=== PATIENT | female | born 1955 | race Caucasian/White ===

== ENCOUNTER → 2023-06-07 08:27 | Outpatient (REF) | payer OTHER, SELFPAY | LOC: HWRAD 08:27 | PROVIDERS: ATTENDING PHYSICIAN Surgery; FAMILY PHYSICIAN Physician Assistant Medical | DX: K57.32 Diverticulitis of large intestine without perforation or abscess without bleeding (principal) | CPT/HCPCS: 74177; Q9967 ==

== ENCOUNTER 2023-07-22 12:03 | Inpatient (IN) | payer OTHER, SELFPAY ==
[2023-07-12 12:36] VITALS: BMI 32.7
[2023-07-22] VITALS (11 sets, daily range): BP systolic 137–182; BP diastolic 60–102; BMI 32.7
[2023-07-22] MEDS: ENTEREG 12 MG PO (11:59)
[2023-07-22] MEDS: TYLENOL 1000 MG PO (11:59)
[2023-07-22] MEDS: NORMOSOL-R 1000 IV (12:04)
--- NOTE | 2023-07-22 13:05 | HP.FOC2 ---
Focused History & Physical
Chief Complaint
HPI:
Chief Complaint: Chronic sigmoid diverticulitis
HPI / Indication for Planned Procedure: Patient is a 68-year-old female who I been following as an outpatient secondary to a known history of intermittent and chronic sigmoid diverticulitis. Secondary to the frequency of her numerous recurrences
she presents today for scheduled sigmoidectomy for definitive management of her sigmoid diverticular disease.
Relevant Past Medical History: Other (Hypertension, GERD, OCD, history of diverticulitis)
Relevant Social History: Negative
Relevant Family History: Negative
Relevant Past Surgical History: Positive for (Right eye surgery)
Review of Systems
Review of Pertinent Systems: All Systems Negative
Medication
See Medication form for detailed medications: Yes
Medication List (including Herbals & OTC):
acetaminophen 325 mg tablet (Tylenol) 650 mg PO Q4H PRN pain 07/15/23
clomipramine 25 mg capsule 25 mg PO DAILY 07/15/23
famotidine 20 mg tablet (Pepcid) 40 mg PO DAILY 07/15/23
ibuprofen 200 mg capsule 200 mg PO Q6H PRN pain 07/15/23
lisinopril 5 mg tablet 5 mg PO DAILY 07/15/23
Medications Reviewed: Yes
Allergies and Reactions
Patient has Allergies: No
Noted Allergies and Reactions:
Allergy/AdvReac Type Severity Reaction Status Date / Time
No Known Allergies Allergy Verified 07/15/23 11:32
Pertinent Physical Exam
All Other Systems: Negative
Head/Neck: Normal
Lungs: Normal
Heart: Normal
Abdomen: Normal
Extremities: Normal
Neurological: Normal
Diagnosis / Assessment
68-year-old female with history of multiply recurrent/chronic sigmoid diverticulitis presenting for scheduled sigmoidectomy
Plan / Procedure
Laparoscopic assisted sigmoidectomy
Anesthesia/Sedation to be done by Anesthesia Provider: Yes
--- NOTE | 2023-07-22 13:07 | W.SUR.PREOP ---
Pre-Operative Surgical Note
-
I have examined this patient prior to the performance of the scheduled procedure.
The patient's condition is unchanged from the time of the current History and
Physical and the patient is able to undergo the scheduled procedure.
--- NOTE | 2023-07-22 18:00 | W.IMMPOSTOP ---
Addendum entered and electronically signed by Alex Peoples MD 07/27/23 16:35:
#[id number]
Original Note:
Surgical Immed Post Op Note
-
Primary Surgeon: Richelle
Assisting Surgeon: Kasie Godoy PA-C
Pre-op Diagnosis: Chronic Sigmoid Diverticulitis
Post-op Diagnosis: Chronic Sigmoid Diverticulitis
Procedure Performed: Laparoscopic mobilization splenic flexure
Laparoscopic low anterior resection
Anesthesia Type: GETA + 0.25% Marcaine
Specimen / Cultures: Sigmoid colon and upper rectum
Estimated Blood Loss: 50mL
Complications: none immediate
Operative Findings: Fibrotic, thickened sigmoid colon folded upon itself and adherent to left pelvic sidewall. Diseased area predominantly in distal sigmoid colon to level of upper rectum with dense inflammatory adhesions but no abscess or acute
component. Sigmoid colon resected. Upper portion of intraperitoneal rectum also resected due to scaring and angulation caused by mesenteric/peritoneal scarring. Rectum circumferentially mobilized for upper resection but point of resection and
anastomosis just at intraperitoneal border of rectum; preserving all of the extraperitoneal rectum. EEA end-end procto-colonic anastomosis. Air leak test negative.
The assistance of Kasie Godoy PA-C was required due to the complexity of the procedure. During the procedure Kasie Godoy PA-C assisted with retraction of tissue, managing the laparoscope, assistance with bowel resection, and closure of the
incision sites. I was present for the entirety of the operative procedure.
patients sister in law updated post op in the waiting area
[2023-07-22] MEDS: DILAUDID 0.5 MG IV ×3 (18:40→20:42)
[2023-07-22] MEDS: NSS 1000 IV (19:09)
[2023-07-22] MEDS: APRESOLINE 5 MG IV (20:34)
--- NOTE | 2023-07-22 21:00 | PTCARENOTE ---
Pt. arriving to [facility] [address] from PACU via bed at 1947. Surgical sites inspected with off-going PACU nurse at bedside. Pt. A&Ox3, drowsy but arousable to verbal stimuli, in NAD, even and unlabored breathing on 2L NC, BP 182/102 manually, house [employer]
contacted for orders - see MAR. Pt. and family member oriented to room and unit policies, bed locked and in lowest position, side rails in place, and call light within reach.
[2023-07-23] MEDS: DILAUDID 0.5 MG IV ×7 (00:01→23:31)
[2023-07-23] MEDS: NSS 1000 IV ×3 (02:38→20:30)
[2023-07-23 03:43] VITALS: BP 118/67
[2023-07-23] MEDS: PEPCID 40 MG PO (03:48)
[2023-07-23] MEDS: TYLENOL 650 MG PO (04:02)
[2023-07-23 05:40] LABS: Hematocrit 37.6 % (37.0-47.0); Hemoglobin 12.2 g/dL (12.0-16.0); Mean Corp Hgb Conc. 32.4 g/dL (33.0-37.0); Mean Corpuscular Hgb 28.6 pg (27.0-31.0); Mean Corpuscular Volume 88.1 fL (81.0-99.0); Mean Platelet Volume 10.5 fL (7.4-10.4); Platelet Count 197 10^3/uL (130-400); Red Blood Cell Count 4.27 10^6/uL (4.20-5.40); Red Cell Dist. Width 13.1 % (11.5-14.5); White Blood Cell Count 7.7 10^3/uL (4.8-10.8)
[2023-07-23 06:15] LABS: Blood Urea Nitrogen 11 mg/dl (7-17); Carbon Dioxide 26 mmol/L (22-30); Chloride 104 mmol/L (98-107); Estimated Creatinine Clearance 102 ml/min; Glucose 106 mg/dl (70-99); Potassium 4.4 mmol/L (3.5-5.1); Sodium 137 mmol/L (135-145); eGFR > 60.00
[2023-07-23 07:16] VITALS: BP 125/55
[2023-07-23] MEDS: ENTEREG 12 MG PO ×2 (08:16→20:27)
[2023-07-23] MEDS: FLUSH (NSS) 1 FLUSH IV (08:16)
[2023-07-23] MEDS: PROTONIX IV 40 MG IV (08:16)
[2023-07-23] MEDS: ZESTRIL 5 MG PO (08:16)
[2023-07-23] MEDS: NSS (PRESERVATIVE FREE) 10 ML IV (08:16)
--- NOTE | 2023-07-23 08:32 | W.PN.GS2 ---
Today's Communication / Plan
-
-- Trial of clears
-- Pain control: Tylenol, Toradol, IV Dilaudid PRN, start Tramadol or Oxycodone if tolerating clears
-- Maintain IVF for today, will decrease rate slightly
-- Lovenox for DVT
-- OOB/ambulate
Assessment / Plan
-
Patient is a 68 yo F POD#1 s/p laparoscopic sigmoidectomy/LAR for diverticulitis
AVSS
Labs unremarkable
No major postoperative concerns
-- Trial of clears
-- Pain control: Tylenol, Toradol, IV Dilaudid PRN, start Tramadol or Oxycodone if tolerating clears
-- Maintain IVF for today, will decrease rate slightly
-- Home BP medications ordered
-- Lovenox for DVT
-- Protonix for GI (home medication)
-- OOB/ambulate
Subjective Data
-
Date of Service: July 23, 2023
Slight abdominal soreness with movement. No major complaints. Denies nausea, vomiting, increased bloating. No flatus or BM. Rizzo in place. Afebrile. Minimal ambulation.
Objective Data
-
Intake and Output
07/22/23 07/23/23 07/24/23
06:59 06:59 06:59
Intake Total 1685 / 1685
Output Total 850 / 850
Balance 835 / 835
Intake:
IV fluids (Total) 1685 / 1685
Normosol 125 / 125
Output:
Urine, Rizzo 850 / 850
Vital Signs
Temp Pulse Resp BP Pulse Ox
98.5 F 83 18 125/55 98
07/23/23 07:16 07/23/23 07:16 07/23/23 07:16 07/23/23 07:16 07/23/23 07:16
Lab Results
07/23/23 04:19
07/23/23 04:19
Calcium 8.0 mg/dl (8.4-10.2) L 07/23/23 04:19
Physical Exam
-
Gen: NAD
Abd: soft, mild abdominal pain, mild distension, non-peritoneal, incisions c/d/i - no erythema, ecchymosis or drainage
--- NOTE | 2023-07-23 11:17 | CM ---
Met with patient in room. Patient works fulltime at [employer]. SHe was independent prior to admit. She lives alone in 2 level home. It is built on a hill. TO enter 7 steps, landing 7 more steps to enter.
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 UP 5 steps, landing, 5 more steps to full bath and bedroom. She has bought a raised toilet seat.
NO other DME. NO history of VNA or SNF.
Plan home no needs.
[2023-07-23 11:23] VITALS: BP 125/56
[2023-07-23 15:44] VITALS: BP 134/60
[2023-07-23] MEDS: LOVENOX 40 MG SC (17:07)
[2023-07-23] MEDS: ANAFRANIL 25 MG PO (21:32)
[2023-07-23 23:40] VITALS: BP 130/67
[2023-07-24] MEDS: DILAUDID 0.5 MG IV ×2 (03:46→06:17)
[2023-07-24] MEDS: NSS 1000 IV (06:10)
[2023-07-24 06:22] LABS: Hematocrit 34.2 % (37.0-47.0); Mean Corp Hgb Conc. 32.2 g/dL (33.0-37.0); Mean Corpuscular Hgb 28.6 pg (27.0-31.0); Mean Corpuscular Volume 89.1 fL (81.0-99.0); Mean Platelet Volume 10.7 fL (7.4-10.4); Platelet Count 164 10^3/uL (130-400); Red Blood Cell Count 3.84 10^6/uL (4.20-5.40); Red Cell Dist. Width 13.4 % (11.5-14.5); White Blood Cell Count 8.6 10^3/uL (4.8-10.8)
[2023-07-24] MEDS: TYLENOL 650 MG PO ×3 (06:31→21:45)
[2023-07-24 06:54] LABS: Blood Urea Nitrogen 11 mg/dl (7-17); Calcium 8.4 mg/dl (8.4-10.2); Carbon Dioxide 23 mmol/L (22-30); Chloride 109 mmol/L (98-107); Estimated Creatinine Clearance 87 ml/min; Glucose 85 mg/dl (70-99); Potassium 4.2 mmol/L (3.5-5.1); Sodium 137 mmol/L (135-145); eGFR > 60.00
[2023-07-24 07:42] VITALS: BP 143/54
[2023-07-24] MEDS: ENTEREG 12 MG PO (08:28)
[2023-07-24] MEDS: NSS (PRESERVATIVE FREE) 10 ML IV (08:28)
[2023-07-24] MEDS: PROTONIX IV 40 MG IV (08:28)
[2023-07-24] MEDS: ZESTRIL 5 MG PO (08:28)
--- NOTE | 2023-07-24 09:39 | W.PN.GS2 ---
Addendum entered and electronically signed by Yefri Villegas MD 07/24/23 09:45:
Patient seen and examined. Agree with assessment plan as documented below.
No complaints. Pain well-controlled. Reports some mild crampy discomfort. No nausea or vomiting. Passing flatus and multiple loose nonbloody stools. Ambulating.
Gen: NAD
Abd: soft, mild distension, ND, non-peritoneal, incisions c/d/i - no erythema, ecchymosis, or drainage
Patient is a 68 yo F POD#2 s/p laparoscopic sigmoidectomy/LAR for diverticulitis
AVSS
Mild acute anemia secondary to intraop losses (expected) and hemodilution. No evidence of active bleeding. Hb stable
Bowel function returning
-- Advance to LRD
-- Pain control: Tylenol, Toradol, Tramadol prn
-- D/C IVF
-- Home BP medications ordered
-- Rizzo removed, voiding
-- Lovenox for DVT
-- Protonix for GI (home medication)
-- OOB/ambulate
Original Note:
Today's Communication / Plan
-
Advance diet
OOB/Ambulate
Assessment / Plan
-
Patient is a 68 yo F POD#2 s/p laparoscopic sigmoidectomy/LAR for diverticulitis
AVSS
Mild acute anemia secondary to intraop losses (expected) and hemodilution. No evidence of active bleeding.
Bowel function returning
-- Advance to LRD
-- Pain control: Tylenol, Toradol, Tramadol prn
-- D/C IVF
-- Home BP medications ordered
-- Lovenox for DVT
-- Protonix for GI (home medication)
-- OOB/ambulate
Subjective Data
-
Date of Service: July 24, 2023
Patient seen and examined at bedside with Dr. Lambour. Denies n/v. Tolerating clears. Passing loose stools and flatus. Pain is minimal.
Objective Data
-
Intake and Output
07/23/23 07/24/23 07/25/23
06:59 06:59 06:59
Intake Total 1685 / 1685 3120 / 3120
Output Total 850 / 850 1500 / 1500
Balance 835 / 835 1620 / 1620
Intake:
Oral fluids 720 / 720
IV fluids (Total) 1685 / 1685 2400 / 2400
Normosol 125 / 125
Output:
Urine, Rizzo 850 / 850 600 / 600
Urine, Voided 900 / 900
Other:
Number of approximated MODERATE 1
amounts of urine
Vital Signs
Temp Pulse Resp BP Pulse Ox
98.9 F 93 18 143/54 93
07/24/23 07:42 07/24/23 08:28 07/24/23 07:42 07/24/23 08:28 07/24/23 07:42
Lab Results
07/24/23 05:12
07/24/23 05:12
Calcium 8.4 mg/dl (8.4-10.2) 07/24/23 05:12
Physical Exam
-
Gen: NAD
Abd: soft, mild tenderness, ND, non-peritoneal, incisions c/d/i - no erythema, ecchymosis or drainage
[2023-07-24] MEDS: ULTRAM 50 MG PO ×3 (11:56→23:36)
[2023-07-24] MEDS: LOVENOX 40 MG SC (17:17)
[2023-07-24 17:39] VITALS: BP 154/68
[2023-07-24 19:15] VITALS: BP 165/77
[2023-07-24] MEDS: ANAFRANIL 25 MG PO (21:46)
[2023-07-24] MEDS: PEPCID 20 MG PO (22:59)
[2023-07-24 23:27] LABS: Troponin I < 0.012 ng/ml
[2023-07-24 23:29] VITALS: BP 183/90
[2023-07-24 23:45] VITALS: BP 168/88
[2023-07-24] MEDS: ZOFRAN 4 MG IV (23:57)
--- NOTE | 2023-07-25 00:03 | W.PN.UPDATE ---
Update Note
Progress Note Update
patient c/o chest pain earlier (07/23) EKG NSR. Troponin normal. Gave Pepcid po. At 0000 07/24 she vomited. Downgraded diet to clears and Zofran given. She had been having loose bms and +flatus earlier so doubt ileus.
[2023-07-25] MEDS: NSS 1000 IV ×2 (00:18→17:16)
[2023-07-25] MEDS: COMPAZINE 5 MG IV (01:11)
[2023-07-25] MEDS: OFIRMEV 100 IV (01:41)
--- NOTE | 2023-07-25 02:30 | PTCARENOTE ---
At 21:45 patient complained of abdominal pain and mid back pain (level 2); at 22:25 patient complained of 'chest muscular discomfort' (level 8), EKG obtained (NSR), Troponins obtained (<0.012), patient passing flatus, ambulated to BR, patient stated
she had dinner and a banana, SAMINA Bedolla ordered additional dose of Pepcid PO (administered at 22:59), Tramadol 50mg PO administered at 23:36, patient attempted to lay on left side and also attempt to sit in recliner; @23:57 patient vomited 2x with
total of 250cc emesis, Zofran given at 23:57 and Compazine given at 01:11, SAMINA Bedolla downgraded diet to clears and ordered NS IVF @60 x1 bag, along with Ofirmiv 1000 IVx1 administered at 01:41 as patient stated pain from straining/vomiting; at
02:23 patient asleep.
[2023-07-25] MEDS: ULTRAM 25 MG PO (04:55)
[2023-07-25] MEDS: TYLENOL 650 MG PO ×4 (06:00→20:56)
[2023-07-25 06:14] LABS: Hematocrit 38.3 % (37.0-47.0); Hemoglobin 12.8 g/dL (12.0-16.0); Mean Corp Hgb Conc. 33.4 g/dL (33.0-37.0); Mean Corpuscular Hgb 28.6 pg (27.0-31.0); Mean Corpuscular Volume 85.5 fL (81.0-99.0); Mean Platelet Volume 10.7 fL (7.4-10.4); Platelet Count 194 10^3/uL (130-400); Red Blood Cell Count 4.48 10^6/uL (4.20-5.40); Red Cell Dist. Width 12.8 % (11.5-14.5); White Blood Cell Count 11.2 10^3/uL (4.8-10.8)
[2023-07-25 07:10] VITALS: BP 160/92
[2023-07-25] MEDS: PROTONIX IV 40 MG IV (07:46)
[2023-07-25] MEDS: NSS (PRESERVATIVE FREE) 10 ML IV (07:46)
[2023-07-25] MEDS: ZESTRIL 5 MG PO (07:46)
--- NOTE | 2023-07-25 08:14 | W.PN.GS2 ---
Addendum entered and electronically signed by Yefri Villegas MD 07/25/23 08:36:
Patient seen and examined. Agree with assessment plan as documented below.
Issues with nausea and vomiting overnight. Currently feels improved. Continues to pass flatus and nonbloody stools. Reports some mild RUQ abdominal discomfort which is worse with deep inspiration. No fevers. Voiding.
Gen: NAD
Abd: soft, minimal tenderness, mild
Distension, mild tympany, non-peritoneal, incisions c/d/i - no erythema, ecchymosis or drainage
Patient is a 68 yo F POD#3 s/p laparoscopic sigmoidectomy/LAR for diverticulitis
AVSS
Labs notable for WBC bump
+N/V overnight concerning for developing ileus although still with flatus. Last BM yesterday.
-- Will check ABD XR this am
-- Ok for small amounts of clear liquids, may need to back down to NPO
-- Pain control: Tylenol, Tramadol, Dilaudid prn
-- IVF restarted overnight, will continue until tolerating PO
-- Home BP medications ordered
-- Lovenox for DVT
-- Protonix for GI (home medication)
-- OOB/ambulate
Original Note:
Today's Communication / Plan
-
Check ABD XR
Assessment / Plan
-
Patient is a 68 yo F POD#3 s/p laparoscopic sigmoidectomy/LAR for diverticulitis
AVSS
Labs stable
+N/V overnight concerning for developing ileus although still with flatus. Last BM yesterday.
-- Will check ABD XR this am
-- Ok for small amounts of clear liquids
-- Pain control: Tylenol, Tramadol, Dilaudid prn
-- IVF restarted overnight, will continue until tolerating PO
-- Home BP medications ordered
-- Lovenox for DVT
-- Protonix for GI (home medication)
-- OOB/ambulate
Subjective Data
-
Date of Service: July 25, 2023
Patient seen and examined at bedside with Dr. Villegas. Nausea overnight. Episode of vomiting early this am. Some ride sided abdominal pain/cramping. Passed flatus and stool yesterday.
Objective Data
-
Intake and Output
07/24/23 07/25/23 07/26/23
06:59 06:59 06:59
Intake Total 3120 / 3120 1000 / 1000
Output Total 1500 / 1500 2100 / 2100
Balance 1620 / 1620 -1100 / -1100
Intake:
Oral fluids 720 / 720 480 / 480
IV fluids (Total) 2400 / 2400 420 / 420
IV piggybacks 100 / 100
Output:
Emesis 250 / 250
Urine, Rizzo 600 / 600
Urine, Voided 900 / 900 1850 / 1850
Other:
Number of approximated SMALL 1
amounts of urine
Number of approximated MODERATE 1
amounts of urine
Vital Signs
Temp Pulse Resp BP Pulse Ox
98.6 F 85 17 160/92 96
07/25/23 07:10 07/25/23 07:46 07/25/23 07:10 07/25/23 07:46 07/25/23 07:10
Lab Results
07/25/23 04:28
07/24/23 05:12
Calcium 8.4 mg/dl (8.4-10.2) 07/24/23 05:12
Physical Exam
-
Gen: NAD
Abd: soft, mild tenderness, mild distention, non-peritoneal, incisions c/d/i - no erythema, ecchymosis or drainage
--- NOTE | 2023-07-25 13:22 | CM ---
POD #3 lap sigmoid, OK for small sips clear liquids, IV's restarted. Discharge Plan of Care: Anticipate home with no needs.
[2023-07-25 15:10] VITALS: BP 160/90
[2023-07-25] MEDS: LOVENOX 40 MG SC (17:16)
[2023-07-25 23:22] VITALS: BP 154/85
[2023-07-25] MEDS: ANAFRANIL PO (23:29)
[2023-07-26] MEDS: TYLENOL 650 MG PO ×3 (05:39→17:57)
[2023-07-26 06:35] LABS: Hematocrit 36.8 % (37.0-47.0); Mean Corp Hgb Conc. 32.6 g/dL (33.0-37.0); Mean Corpuscular Hgb 28.4 pg (27.0-31.0); Mean Corpuscular Volume 87.2 fL (81.0-99.0); Mean Platelet Volume 10.6 fL (7.4-10.4); Platelet Count 164 10^3/uL (130-400); Red Blood Cell Count 4.22 10^6/uL (4.20-5.40); Red Cell Dist. Width 12.8 % (11.5-14.5)
[2023-07-26 06:59] LABS: Blood Urea Nitrogen 6 mg/dl (7-17); Calcium 8.6 mg/dl (8.4-10.2); Carbon Dioxide 27 mmol/L (22-30); Chloride 106 mmol/L (98-107); Estimated Creatinine Clearance 102 ml/min; Glucose 84 mg/dl (70-99); Potassium 3.9 mmol/L (3.5-5.1); Sodium 140 mmol/L (135-145); eGFR > 60.00
--- NOTE | 2023-07-26 07:03 | W.PN.GS2 ---
Today's Communication / Plan
-
`
Assessment / Plan
-
Assessment: 68 yo F POD#4 s/p laparoscopic sigmoidectomy/LAR for diverticulitis - mobilization of splenic flexure
AVSS
Labs pending this AM
continues to pass flatus; nonobstructive bowel gas patter on xray 6/3 also without significant distention
Plan:
-- Full liquid diet today; if tolerated advance to for dinner
-- Pain control: Tylenol, Tramadol, Dilaudid prn
-- stop IVFs
-- okay to shower
-- Home BP medications ordered
-- Lovenox for DVT
-- Protonix for GI (home medication)
-- OOB/ambulate
probable d/c this PM vs tomorrow AM pending tolerance of dietary advancement
Subjective Data
-
Date of Service: July 26, 2023
pt seen and examined
clear liquids tolerating well
no further nausea, no more episodes of vomiting
+flatus; no BMs
mild post op pain controlled with tylenol
Objective Data
-
Intake and Output
07/25/23 07/26/23 07/27/23
06:59 06:59 06:59
Intake Total 1000 / 1000 1200 / 1200
Output Total 2100 / 2100
Balance -1100 / -1100 1200 / 1200
Intake:
Oral fluids 480 / 480 480 / 480
IV fluids (Total) 420 / 420 720 / 720
IV piggybacks 100 / 100
Output:
Emesis 250 / 250
Urine, Voided 1850 / 1850
Other:
Number of approximated SMALL 1
amounts of urine
Number of approximated MODERATE 3
amounts of urine
Vital Signs
Temp Pulse Resp BP Pulse Ox
98.5 F 84 16 154/85 99
07/25/23 23:22 07/25/23 23:22 07/25/23 23:22 07/25/23 23:22 07/25/23 23:22
Lab Results
07/26/23 05:17
07/26/23 05:17
Calcium 8.6 mg/dl (8.4-10.2) 07/26/23 05:17
Physical Exam
-
NAD AAOx3
ABD: soft, ND, TTP localized to surgical sites
incisions with glue dressing, no ecchymosis, no erythema, no drainage
[2023-07-26 07:23] VITALS: BP 159/92
[2023-07-26] MEDS: NSS (PRESERVATIVE FREE) 10 ML IV (07:52)
[2023-07-26] MEDS: ZESTRIL 5 MG PO (07:52)
[2023-07-26] MEDS: PROTONIX IV 40 MG IV (07:53)
--- NOTE | 2023-07-26 14:22 | CM ---
POD #4 Lap Sigmoid, Full liquid diet. Discharge Plan of Care: Anticipate no needs.
[2023-07-26 15:35] VITALS: BP 142/84
[2023-07-26] MEDS: LOVENOX 40 MG SC (17:03)
[2023-07-26] MEDS: ULTRAM 25 MG PO (22:17)
[2023-07-26] MEDS: ANAFRANIL PO ×2 (22:18→22:20)
[2023-07-26 23:29] VITALS: BP 150/69
[2023-07-27] MEDS: TYLENOL 650 MG PO ×2 (02:12→08:17)
[2023-07-27 03:01] VITALS: BP 164/83
[2023-07-27 07:10] VITALS: BP 153/73
--- NOTE | 2023-07-27 07:15 | W.PN.GS2 ---
Today's Communication / Plan
-
d/c
Assessment / Plan
-
Assessment: 68 yo F POD#5 s/p laparoscopic sigmoidectomy/LAR for diverticulitis - mobilization of splenic flexure
AVSS
+return of GI function and darrion diet advancement
Plan: d/c home
Subjective Data
-
Date of Service: July 27, 2023
pt seen and examined
better night of sleep
minimal post op abd pain
darrion diet advancement
multiple loose BMs yesterday
Objective Data
-
Intake and Output
07/26/23 07/27/23 07/28/23
06:59 06:59 06:59
Intake Total 1200 / 1200 2480 / 2480
Balance 1200 / 1200 2480 / 2480
Intake:
Oral fluids 480 / 480 2360 / 2360
IV fluids (Total) 720 / 720 120 / 120
Other:
Number of approximated MODERATE 3 3
amounts of urine
Number of approximated LARGE 1
amounts of urine
Vital Signs
Temp Pulse Resp BP Pulse Ox
99.9 F 94 18 164/83 96
07/27/23 03:01 07/27/23 03:01 07/27/23 03:01 07/27/23 03:01 07/27/23 03:01
Lab Results
07/26/23 05:17
07/26/23 05:17
Calcium 8.6 mg/dl (8.4-10.2) 07/26/23 05:17
Physical Exam
-
NAD AAOx3
ABD: soft, ND, minimal incisional tenderness
incisions with glue dressings
no erythema, no drainage, no open wounds
--- NOTE | 2023-07-27 07:20 | W.DS.TRANS ---
Addendum entered and electronically signed by SAMINA Daniel 07/29/23 10:57:
Dictated #[id number]
Original Note:
DC Summary - Sed [employer]
-
Discharge Instructions:
Sleep Apnea Risk Intermediate
Discharge Diagnosis/Procedures Sigmoid diverticulitis; laparoscopic
sigmoidectomy
Diet Low Residue,As tolerated
Additional Diets Smaller meals, lower fiber foods for the first
couple weeks postoperatively.
Activity No strenuous activity
Additional Activity No lifting over 20 pounds for 4 to 6 weeks
postop. Walking, standing, stairs and routine
light activities are okay as tolerated
Driving Restrictions As prior to admission
Bathing Restrictions OK to Shower
Wound Care Glue at surgical sites typically peels off in 2
to 3 weeks
Instructions:
Stand-Alone Forms:
Changes to Home Medications: No
Discharge Medications:
DC Medications w/original date entered in [facility]
acetaminophen 325 mg tablet (Tylenol) 650 mg PO Q4H PRN pain 07/15/23
clomipramine 25 mg capsule 25 mg PO DAILY Mental Health/Anxiety 07/15/23
famotidine 20 mg tablet (Pepcid) 40 mg PO DAILY Gastrointestinal Issue 07/15/23
ibuprofen 200 mg capsule 200 mg PO Q6H PRN pain 07/15/23
lisinopril 5 mg tablet 5 mg PO DAILY Blood Pressure 07/15/23
polyethylene glycol 3350 17 gram/dose oral powder (Miralax) 4 g PO DAILY PRN Constipation #119 grams 07/27/23
tramadol 50 mg tablet 25 - 50 mg (0.5 - 1 x 50 mg) PO Q6HPRN PRN severe pain/breakthrough pain #10 tabs 07/27/23
Home Medication Changes
Pending Results: No
[2023-07-27] MEDS: ZESTRIL 5 MG PO (08:17)
[2023-07-27] MEDS: NSS (PRESERVATIVE FREE) IV (08:17)
[2023-07-27] MEDS: PROTONIX IV IV (08:18)
[2023-07-27 10:58] VITALS: BP 154/78
--- NOTE | 2023-07-27 11:16 | CM ---
Patient has been medically cleared for discharge to home with no additional skilled services. Patient arranged for transport home.
== END 2023-07-27 11:09 | disposition home or self-care (01) | DRG 330 ==
LOC: 2 SOUTH 12:03
PROVIDERS: Registered Nurse; ADMITTING PHYSICIAN Surgery; FAMILY PHYSICIAN Physician Assistant Medical
PROC: 0DNN4ZZ Release Sigmoid Colon, Percutaneous Endoscopic Approach (ICD-10-PCS; 2023-07-27)
PROC: 0DJD8ZZ Inspection of Lower Intestinal Tract, Via Natural or Artificial Opening Endoscopic (ICD-10-PCS; 2023-07-27)
PROC: 0DTN4ZZ Resection of Sigmoid Colon, Percutaneous Endoscopic Approach (ICD-10-PCS; 2023-07-27)
PROC: 0DBP4ZZ Excision of Rectum, Percutaneous Endoscopic Approach (ICD-10-PCS; 2023-07-27)
DX: K57.32 Diverticulitis of large intestine without perforation or abscess without bleeding (principal); D62 Acute posthemorrhagic anemia; Q43.8 Other specified congenital malformations of intestine; I10 Essential (primary) hypertension; F42.9 Obsessive-compulsive disorder, unspecified; K21.9 Gastro-esophageal reflux disease without esophagitis; K66.0 Peritoneal adhesions (postprocedural) (postinfection); R11.2 Nausea with vomiting, unspecified
CPT/HCPCS: 88307; 36415; 74018; 80048; 84484; 85027; 86850; 86900; 86901; 93005; J1335

== ENCOUNTER → 2024-05-21 08:21 | Outpatient (REF) | payer OTHER, SELFPAY | LOC: HWRAD 08:21 | PROVIDERS: ATTENDING PHYSICIAN Registered Nurse; FAMILY PHYSICIAN Family Medicine | DX: R10.2 Pelvic and perineal pain (principal) | CPT/HCPCS: 76830; 76856 ==

== ENCOUNTER → 2024-06-07 08:43 | Outpatient (REF) | payer OTHER, SELFPAY | LOC: HWRAD 08:43 | PROVIDERS: ATTENDING PHYSICIAN Registered Nurse; FAMILY PHYSICIAN Physician Assistant Medical | DX: Z13.820 Encounter for screening for osteoporosis (principal); Z12.31 Encounter for screening mammogram for malignant neoplasm of breast; M54.50 Low back pain, unspecified | CPT/HCPCS: 72110; 77063; 77067; 77080 ==

== ENCOUNTER → 2024-06-20 09:04 | Outpatient (REF) | payer OTHER, SELFPAY | LOC: WDC 09:04 | PROVIDERS: ATTENDING PHYSICIAN Registered Nurse; FAMILY PHYSICIAN Physician Assistant Medical | DX: R92.8 Other abnormal and inconclusive findings on diagnostic imaging of breast (principal) | CPT/HCPCS: 77065 ==

== ENCOUNTER 2024-08-17 09:28 | Outpatient (RCR) | payer MEDICARE, SELFPAY | END 2024-08-17 23:59 | disposition home or self-care (01) | LOC: RPT 09:28 | PROVIDERS: ATTENDING PHYSICIAN Physician Assistant Medical | DX: M54.51 Vertebrogenic low back pain (principal); Z73.6 Limitation of activities due to disability | CPT/HCPCS: 97010; 97110; 97112; 97140; 97161 ==

== ENCOUNTER 2024-09-14 08:49 | Outpatient (RCR) | payer MEDICARE, SELFPAY | END 2024-09-14 23:59 | disposition home or self-care (01) | LOC: RPT 08:49 | PROVIDERS: ATTENDING PHYSICIAN Physician Assistant Medical | DX: M54.51 Vertebrogenic low back pain (principal); Z73.6 Limitation of activities due to disability | CPT/HCPCS: 97010; 97110; 97112; 97140 ==

== ENCOUNTER 2024-10-09 10:29 | Outpatient (RCR) | payer MEDICARE, SELFPAY | END 2024-10-09 23:59 | disposition home or self-care (01) | LOC: RPT 10:29 | PROVIDERS: ATTENDING PHYSICIAN Physician Assistant Medical | DX: M54.51 Vertebrogenic low back pain (principal); Z73.6 Limitation of activities due to disability; M62.81 Muscle weakness (generalized) | CPT/HCPCS: 97010; 97110; 97112; 97140 ==

== ENCOUNTER → 2024-10-09 11:07 | Outpatient (REF) | payer OTHER, SELFPAY | LOC: RAD 11:07 | PROVIDERS: ATTENDING PHYSICIAN Physician Assistant Medical | DX: Z00.00 Encounter for general adult medical examination without abnormal findings (principal); M54.6 Pain in thoracic spine; E66.812 Obesity, class 2; Z68.36 Body mass index [BMI] 36.0-36.9, adult; I10 Essential (primary) hypertension; K21.9 Gastro-esophageal reflux disease without esophagitis; E78.2 Mixed hyperlipidemia; R73.02 Impaired glucose tolerance (oral); M17.12 Unilateral primary osteoarthritis, left knee; E55.9 Vitamin D deficiency, unspecified; Z12.31 Encounter for screening mammogram for malignant neoplasm of breast; F42.8 Other obsessive-compulsive disorder; Z87.19 Personal history of other diseases of the digestive system; R41.9 Unspecified symptoms and signs involving cognitive functions and awareness; Z23 Encounter for immunization; M54.50 Low back pain, unspecified; R92.1 Mammographic calcification found on diagnostic imaging of breast | CPT/HCPCS: 72072 ==

== ENCOUNTER 2024-11-14 10:00 | Outpatient (RCR) | payer OTHER, SELFPAY | END 2024-11-14 23:59 | disposition home or self-care (01) | LOC: RPT 10:00 | PROVIDERS: ATTENDING PHYSICIAN Physician Assistant Medical | DX: M54.51 Vertebrogenic low back pain (principal); Z73.6 Limitation of activities due to disability; M62.81 Muscle weakness (generalized); R26.89 Other abnormalities of gait and mobility | CPT/HCPCS: 97010; 97110; 97140 ==